=== PATIENT | female | born 2005 | race Caucasian/White ===

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

== ENCOUNTER 2024-11-23 23:23 | Inpatient (IN) | payer OTHER, SELFPAY ==
--- NOTE | ~2024-11-23 | CT_ITS ---
CLINICAL HISTORY: appy? RLQ pain CT abdomen and pelvis with contrast Comparison: None provided Findings: No consolidation or effusion. There is urothelial enhancement of the right renal pelvis and right ureter with mild peripelvic/periureteral edema. The liver, gallbladder, pancreas, spleen, bilateral adrenal glands, and left kidney appear within normal limits. There is no evidence of bowel obstruction. The appendix appears normal. There is no pneumoperitoneum. Urinary bladder wall thickening is present, which is more than expected for degree of distention. There is no adenopathy. 1.1 cm focal sclerosis is seen at L5, likely representing a bone island. No acute osseous abnormality is identified. No aggressive lytic or blastic lesion is seen. IMPRESSION: 1. Urothelial enhancement of the right renal pelvis and right ureter with mild right peripelvic/periureteral edema consistent with pyelitis/ureteritis. Recommend correlation with urinalysis. 2. Urinary bladder wall thickening suggestive of cystitis. This document has been electronically signed by: Duncan Nunez on 11/24/2024 05:06:15
--- NOTE | ~2024-11-23 | US_ITS ---
EXAMINATION: US RETROPERITONEAL LIMITED, RIGHT (RENAL ONLY) CLINICAL INFORMATION: Right ureteral hypervascularity. COMPARISON: CT performed same day at 3:49 am TECHNIQUE: Grayscale and color Doppler imaging was performed through the right kidney FINDINGS: RIGHT KIDNEY: 12.7 x 4.8 x 4.5 cm (SAG x AP x TRV). The kidney is normal in size, contour, and echogenicity. Renal cortical thickness is normal. No calculi or focal parenchymal lesions. No hydronephrosis. US/US renal RT IMPRESSION: Unremarkable right renal ultrasound. Electronically signed by: Inocente Farrell MD 11/24/2024 05:19 PM EDT
[2024-11-23 23:53] VITALS: BP 119/67; PULSE 88; RESP 18; TEMP 36.9; O2SAT 96; BMI 26.1
[2024-11-24] VITALS (9 sets, daily range): BP systolic 106–127; BP diastolic 54–77; PULSE 86–110; RESP 16–18; TEMP 36.7–38; O2SAT 96–100; BMI 26.3
[2024-11-24 00:10] LABS: Hematocrit 37.3 % (37.0-47.0); Hemoglobin 12.9 g/dl (12.0-16.0); Imm Gran Abs Auto 0.13 X10*3/uL (0.00-0.03); Imm Gran Pct Auto 0.6 % (0.0-0.4); Lymphocytes Absolute Auto 0.9 X10*3/uL (1.2-4.9); Mean Corpuscular HGB Conc 34.6 g/dl (31.0-35.0); Mean Corpuscular Hemoglobin 30.4 pg (27.0-33.0); Mean Corpuscular Volume 87.8 fL (80.0-98.0); NRBC Abs Auto 0.000 X10*3/uL (0.0-0.012); NRBC Pct Auto 0.0 /100WBC (0.0-0.2); Platelet Count 254 X10*3/uL (160-400); Red Blood Count 4.25 X10*6/uL (4.20-5.50); SCAN SMEAR FLAG 1; White Blood Count 22.9 X10*3/uL (4.8-10.8)
[2024-11-24 00:11] LABS: MANUAL DIFF FLAG SCAN
[2024-11-24 00:12] LABS: Appearance Urine Turbid; Glucose Urine UA Negative (Negative); PH 8.5 (5.0-9.0); Specific Gravity - Urine 1.015 (1.005-1.025); UMIC TRIGGER UACC YES
[2024-11-24 00:13] LABS: UPreg QC Valid YES
[2024-11-24 00:21] LABS: UACC Culture Trigger YES
[2024-11-24 00:25] LABS: Alanine Aminotransferase 13 U/L (0-31); Albumin Level 4.7 g/dL (3.5-5.0); Alkaline Phosphatase 59 U/L (39-117); Anion Gap 14 (12-20); Aspartate Amino Transferase 16 U/L (5-31); Blood Urea Nitrogen 9 mg/dL (9-16); Calcium 9.6 mg/dL (8.4-10.2); Carbon Dioxide 26 mmol/L (22-29); Chloride 105 mmol/L (96-108); Creatinine Clr Calc Pharmacy 126.1; Estimated Glomerular Filt Rate > 60; Lipase 27 U/L (8-78); Magnesium 1.8 mg/dL (1.6-2.6); Potassium 3.8 mmol/L (3.3-5.1); Sodium 141 mmol/L (135-145); Total Protein 7.7 g/dL (6.5-8.0)
--- OUTSIDE RECORDS SUMMARY | 2024-11-24 00:37 | XMS_ITS ---
Author Name [facility] Organization Unknown Care Team Organization Name Specialty Phone Email Start Date End [facility] 01/13/20222023
[2024-11-24] MEDS: iohexoL 350 MG/ML 100 ML INFUS..BTL 85 ML IV (04:11)
--- NOTE | 2024-11-24 05:15 | ED.GENADULT ---
HPI - General Adult General Chief complaint: Abdominal Pain Stated complaint: abd pain Time Seen by Provider: 11/24/24 02:15 Source: patient Limitations: no limitations History of Present Illness ED Provider: Sushila Padilla PA-C HPI narrative: 19-year-old female who is otherwise healthy presents with right lower abdominal discomfort times a day and a half. Pain is nonradiating, unable to describe the nature of her discomfort, but states it is intermittent and ?comes in waves?. Pain worse with movement. Associated dysuria, low-grade temperature at home, with nausea vomiting. Denies back pain, flank pain, history of kidney stones. No history of ovarian cysts. Related Data Allergies Allergy/AdvReac Type Severity Reaction Status Date / Time No Known Allergies Allergy Unverified 11/23/24 23:57 Review of Systems Review of Systems: Yes all other systems are reviewed and are negative Constitutional: Constitutional: Denies fatigue and Reports fever(s) Cardiovascular: Cardiovascular: Denies chest pain and Denies dyspnea Respiratory: Respiratory: Denies dyspnea Gastrointestinal: Gastrointestinal: Reports abdominal pain, Denies constipation, Denies diarrhea, Reports nausea and Reports vomiting Genitourinary: Genitourinary: Reports dysuria, Denies pelvic pain, Denies flank pain and Denies vaginal discharge Musculoskeletal: Musculoskeletal: Denies back pain Endocrine: Endocrine: Denies fatigue PMFSH Past Medical History Attestation statement: The following information was validated with the patient. Surgical History H/O removal of cyst H/O wisdom tooth extraction Social History Social History (Updated 11/24/24 @ 06:05 by DEL Hernandez) Alcohol intake: never Patient Tobacco Use Status: Never used Tobacco Smoked in Last 30 Days: No Use of substances other than those prescribed or required for medical reasons: No Advance Directives: No Patient : No (HCG negative) Physical Exam ED Vital Signs: Vital Signs - 24 hr 11/23/24 23:53 11/24/24 00:38 11/24/24 02:56 Temperature 98.5 F 98.6 F 99.0 F Pulse Rate 88 86 94 Respiratory Rate 18 16 17 Blood Pressure 119/67 127/77 122/72 Pulse Oximetry 96 100 99 Oxygen Delivery Method Room Air Room Air Room Air 11/24/24 04:02 Temperature 98.1 F Pulse Rate 91 Respiratory Rate 17 Blood Pressure 106/54 L Pulse Oximetry 97 Oxygen Delivery Method Room Air BMI result Body Mass Index 26.1 Const Other: Alert well-appearing Orientation/consciousness: patient oriented x3 Resp Effort & Inspection: normal respiratory effort Cardio Other: Normal peripheral perfusion GI Other: Abdomen is soft, nondistended, mild tenderness mid to lower right abdomen without guarding General: Yes no CVA tenderness Back/Spine/Pelvis Back: no CVA tenderness Skin Other: Warm dry no rash Neuro General: patient oriented x3, gait normal, no focal motor deficits and CN's II-XI intact bilaterally Psych Other: Cooperative Medications Administered Generic Name Dose Route Start Last Admin Trade Name Freq PRN Reason Stop Dose Admin Sodium Chloride 1,000 mls @ 100 mls/hr 11/24/24 05:45 11/24/24 06:34 Ns IVCONT 100 mls/hr .Q10H RAQUEL Administration Sodium Chloride 3 ml 11/24/24 08:00 11/24/24 07:29 0.9 % Sodium Chloride Flush 3 Ml Syringe IVFLUSH Not Given QSHIFT RAQUEL Discontinued Medications Generic Name Dose Route Start Last Admin Trade Name Freq PRN Reason Stop Dose Admin Acetaminophen 975 mg 11/24/24 05:56 11/24/24 06:30 Acetaminophen 325 Mg Tablet PO 11/24/24 05:57 975 mg ONCE ONE Administration Ceftriaxone Sodium 2 gm 11/24/24 02:30 11/24/24 02:48 Ceftriaxone Sodium 2 Gm Vial IVPUSH 11/24/24 02:31 2 gm ONCE ONE Administration Sodium Chloride 1,000 mls @ 999 mls/hr 11/24/24 02:30 11/24/24 04:02 Ns IV 11/24/24 03:30 Infused .Q1H1M RAQUEL Infusion Sodium Chloride 500 mls @ 500 mls/hr 11/24/24 06:00 11/24/24 06:32 Ns IV 11/24/24 06:59 500 mls/hr .Q1H RAQUEL Administration Iohexol 85 ml 11/24/24 04:09 11/24/24 04:11 Iohexol 350 Mg/Ml 100 Ml Infus..Btl IV 11/24/24 04:10 85 ml ONCE ONE Administration Ketorolac Tromethamine 15 mg 11/24/24 02:30 11/24/24 02:48 Ketorolac Tromethamine 15 Mg/Ml Vial IVPUSH 11/24/24 02:31 15 mg ONCE ONE Administration Ondansetron HCl 4 mg 11/24/24 01:40 11/24/24 01:43 Ondansetron Odt 4 Mg Tab.Rapdis TRANSLINGU 11/24/24 01:41 4 mg ONCE ONE Administration Ondansetron HCl 4 mg 11/24/24 02:30 11/24/24 03:33 Ondansetron Hcl 4 Mg/2 Ml Vial IVPUSH 11/24/24 02:31 Not Given ONCE ONE Medical Decision Making Medical Decision Making MDM Narrative: 19-year-old female who is otherwise healthy presents with right lower abdominal discomfort times a day and a half. Pain is nonradiating, unable to describe the nature of her discomfort, but states it is intermittent and ?comes in waves?. Pain worse with movement. Associated dysuria, low-grade temperature at home, with nausea vomiting. Denies back pain, flank pain, history of kidney stones. No history of ovarian cysts. No chronic issues History: Per patient I have considered the following differential diagnoses: Pyelonephritis, UTI, renal colic, appendicitis, torsion, biliary colic, cholecystitis Plan: Screening labs including urinalysis were completed from triage, the patient has significant leukocytosis and a urinary tract infection, given associated pain, we will be scanning to rule out pyelo versus obstructing infected stone. Adding on blood cultures, lactic, starting ceftriaxone, giving Toradol Zofran and IV fluid. Given right-sided symptoms, I did consider underlying biliary pathology, however there was no focal right upper quadrant pain, she is not having postprandial symptoms, LFTs are normal. Likewise, thought about appendicitis, this still could be appendicitis, CT pending. I do not believe this is torsion, the patient is well-appearing, appears comfortable, she does not have a known history of cysts. I have independently reviewed the following tests: Labs: Significant leukocytosis of 22.9 with left shift, not anemic, no electrolyte abnormality, not , urine infected CT abdomen and pelvis:IMPRESSION: 1. Urothelial enhancement of the right renal pelvis and right ureter with mild right peripelvic/periureteral edema consistent with pyelitis/ureteritis. Recommend correlation with urinalysis. 2. Urinary bladder wall thickening suggestive of cystitis. Differential Diagnosis Differential Diagnoses: The differential diagnosis associated with the presentation includes See medical decision-making Admission/Observation Consideration of admission/observation: Escalation of care including admission/observation considered We will require admission and likely urology consult Consult Healthcare Provider Management of the patient was discussed with: Hospitalist and Assembler Insulator Lab Data MDM Lab Attestation statement: I reviewed the patient's lab results. 11/24/24 00:04 11/24/24 00:04 Labs: Lab Results 11/24/24 11/24/24 Range/Units 00:04 02:41 WBC 22.9 H (4.8-10.8) X10*3/uL RBC 4.25 (4.20-5.50) X10*6/uL Hgb 12.9 (12.0-16.0) g/dl Hct 37.3 (37.0-47.0) % MCV 87.8 (80.0-98.0) fL MCH 30.4 (27.0-33.0) pg MCHC 34.6 (31.0-35.0) g/dl RDW 12.9 (11.0-16.0) % Plt Count 254 (160-400) X10*3/uL MPV 11.4 (9.4-12.3) fL Immature Gran % (Auto) 0.6 H (0.0-0.4) % Neut % (Auto) 89.8 H (45-73) % Lymph % (Auto) 3.7 L (20-40) % [place] % (Auto) 5.7 (2-11) % Eos % (Auto) 0.0 (0-4) % Baso % (Auto) 0.2 (0-2) % Lymph # (Auto) 0.9 L (1.2-4.9) X10*3/uL [place] # (Auto) 1.3 H (0.1-1.2) X10*3/uL Eos # (Auto) 0.0 (0.0-0.4) X10*3/uL Baso # (Auto) 0.0 (0.0-0.2) X10*3/uL Abs Immat Gran (auto) 0.13 H (0.00-0.03) X10*3/uL Absolute Neuts (auto) 20.5 H (2.0-8.3) x10*3/uL Absolute Nucleated RBC 0.000 (0.0-0.012) X10*3/uL Nucleated RBC % (auto) 0.0 (0.0-0.2) /100WBC Smear Tech's Comments VERIFIED Sodium 141 (135-145) mmol/L Potassium 3.8 (3.3-5.1) mmol/L Chloride 105 (96-108) mmol/L Carbon Dioxide 26 (22-29) mmol/L Anion Gap 14 (12-20) BUN 9 (9-16) mg/dL Creatinine 0.78 (0.5-1.4) mg/dL Estim Creat Clear Calc 126.1 Estimated GFR > 60 Random Glucose 129 H (60-115) mg/dL Lactic Acid 1.0 (0.5-2.0) mmol/L Calcium 9.6 (8.4-10.2) mg/dL Magnesium 1.8 (1.6-2.6) mg/dL Total Bilirubin 0.6 (0.0-1.0) mg/dL Direct Bilirubin 0.2 (0.0-0.5) mg/dL AST 16 (5-31) U/L ALT 13 (0-31) U/L Alkaline Phosphatase 59 (39-117) U/L Total Protein 7.7 (6.5-8.0) g/dL Albumin 4.7 (3.5-5.0) g/dL Lipase 27 (8-78) U/L Urine Color Yellow Urine Appearance Turbid Urine pH 8.5 (5.0-9.0) Ur Specific [place] 1.015 (1.005-1.025) Urine Protein 300 (3+) H (Neg-Trace) mg/dL Urine Glucose (UA) Negative (Negative) mg/dL Urine Ketones Trace (Negative) mg/dL Urine Blood Large (3+) H (Negative) Urine Nitrite Positive H (Negative) Ur Leukocyte Esterase Large (3+) H (Negative) Urine RBC >20 H (0-2) /HPF Urine WBC >50 H (0-5) /HPF Ur Squamous Epith Cells 0-2 (0-2) /HPF Urine Bacteria 4+ (None Seen) Hyaline Casts 0-2 (0-2) /LPF Urine Test NEGATIVE (NEGATIVE) Radiology Impression Discussion of test interpretation with radiology: I have reviewed the radiologist's reading. Critical Care Time Critical Care Time Critical Care Time: Yes Total Critical Care Time: 35 Attestation: I Sushila Padilla PA-C have personally performed 35 minutes of critical care time not including lines and procedures; need for IV antibiotic and pain med, concerned for sepsis, need for inpatient admission, likely urology consult Discharge Plan Discharge Clinical Impression: Pyelonephritis of right kidney Patient Disposition: Admitted As Inpatient Interventions: Admission Worksheet (ED) Last Done: 11/24/24 06:19
--- NOTE | 2024-11-24 05:31 | P.HPHOSP_ITS ---
History of Present Illness Date of Service: 11/24/24 Attending physician on admission: Izabel Edward Chief Complaint: abdominal pain Pt is a 19 yo female with PMH wisdom teeth extraction and cyst removal from under the chin presents to the emergency department for evaluation for sudden onset nausea with profound vomiting that started at 15:00 on 11/23/2024. Patient had actually called her mother to see if she was having any symptoms as she thought she had food poisoning. Mother denied having any symptoms. Patient did note that her temperature at home highest was 99.9. Patient denied any chills. Patient also stated that there were no issues with her urine including foul odor or cloudy urine. Patient denies being currently sexually active, hCG negative, and has a normal usual menstrual cycle. Patient denies any history of UTI, kidney stones or difficulty urinating. Patient currently denies any burning or pain with urination or flank pain. . Workup in the ED noted CT scan of the abdomen and pelvis which identified urothelial enhancement of the right renal pelvis and right ureter with mild right peripelvic/Periuretera edema consistent with pyelitis/ureteritis. No evidence of obstruction on CT scan. UA positive for +3 proteinuria, heme, nitrites, leukocyte esterase +3, WBCs greater than 50 and 4+ bacteria. Patient's nausea and vomiting have completely resolved. Patient did receive 1 L of fluids in the ED. hemodynamics stable. Lactic acid normal. Patient does have a leukocytosis with left shift. Renal function stable. Highest temp in the ED is 99.1. Patient does not meet the criteria for sepsis at this time. Patient's mother present and has history of kidney stones. Review of Systems 2 Review of Systems: Patient denies any chest pain, shortness of breath at rest, current nausea or vomiting. Patient is not having any abdominal pain or flank pain. Patient denies any burning or pain with urination. Yes all other systems are reviewed and are negative PMFSH Cognitive capacity: Alert and orientated x3 Functional capacity: independent ambulation Patient : No (HCG negative) Pertinent family history: Mother has a history of kidney stones Surgical History H/O removal of cyst H/O wisdom tooth extraction Social History (Updated 11/24/24 @ 06:05 by DEL Hernandez) Alcohol intake: never Patient Tobacco Use Status: Never used Tobacco Smoked in Last 30 Days: No Use of substances other than those prescribed or required for medical reasons: No Advance Directives: No Patient : No (HCG negative) Ebola Risk: Travel/Contact With Anyone From Affected Area/s: No Has Patient Experienced Ebola Symptoms: No Meds Allergies Allergy/AdvReac Type Severity Reaction Status Date / Time No Known Allergies Allergy Unverified 11/23/24 23:57 Active Medications: No home prescription med Physical Exam 2 Vital Signs and Narrative: Vital Signs: Last Vital Signs Temp 98.1 F 11/24/24 04:02 Pulse 91 11/24/24 04:02 Resp 17 11/24/24 04:02 BP 106/54 L 11/24/24 04:02 Pulse Ox 97 11/24/24 04:02 O2 Del Method Room Air 11/24/24 04:02 BMI result Body Mass Index 26.1 Alert and orientated X3, able to give good history. Neuro: CN II-X11 intact, no deficits, visual acuity intact EYES: PERRLA, EOM intact, sclerae nonicteric, conjunctiva pink ENT: hearing intact, no issues with swallowing, uvula midline, lips moist, nares patent no epistaxis Cardiac: S1 S2 RRR, no murmur, no JVD, no edema in Lower ext Pulmonary: lungs clear to auscultation B Abdominal: BS active in all 4 quadrants, no guarding, tenderness, rebounding MSK: strength 5/5 upper and lower extremities : no CVA tenderness no bladder distension Extremities: no edema in lower extremities, PT and DP pulses palpable +2 Psych: mood stable, judgement and insight good Skin: No new rashes or lesions Results Labs 11/24/24 00:04 11/24/24 00:04 Labs: Laboratory Results - last 24 hr 11/24/24 11/24/24 00:04 02:41 MCV 87.8 MCH 30.4 MCHC 34.6 RDW 12.9 Plt Count 254 MPV 11.4 Immature Gran % (Auto) 0.6 H Neut % (Auto) 89.8 H Lymph % (Auto) 3.7 L [place] % (Auto) 5.7 Eos % (Auto) 0.0 Baso % (Auto) 0.2 Lymph # (Auto) 0.9 L [place] # (Auto) 1.3 H Eos # (Auto) 0.0 Baso # (Auto) 0.0 Abs Immat Gran (auto) 0.13 H Absolute Neuts (auto) 20.5 H Absolute Nucleated RBC 0.000 Nucleated RBC % (auto) 0.0 Smear Tech's Comments VERIFIED Anion Gap 14 Estim Creat Clear Calc 126.1 Estimated GFR > 60 Random Glucose 129 H Lactic Acid 1.0 Calcium 9.6 Magnesium 1.8 Total Bilirubin 0.6 Direct Bilirubin 0.2 AST 16 ALT 13 Alkaline Phosphatase 59 Total Protein 7.7 Albumin 4.7 Lipase 27 Urine Color Yellow Urine Appearance Turbid Urine pH 8.5 Ur Specific [place] 1.015 Urine Protein 300 (3+) H Urine Glucose (UA) Negative Urine Ketones Trace Urine Blood Large (3+) H Urine Nitrite Positive H Ur Leukocyte Esterase Large (3+) H Urine RBC >20 H Urine WBC >50 H Ur Squamous Epith Cells 0-2 Urine Bacteria 4+ Hyaline Casts 0-2 Urine Test NEGATIVE Imaging Radiologist's Impressions: CT ABD IMPRESSION: 1. Urothelial enhancement of the right renal pelvis and right ureter with mild right peripelvic/periureteral edema consistent with pyelitis/ureteritis. Recommend correlation with urinalysis. 2. Urinary bladder wall thickening suggestive of cystitis. Assessment and Plan (1) Pyelonephritis of right kidney: Status: Acute Plan Pt is a 19 yo female with PMH wisdom teeth extraction and cyst removal from under the chin presents to the emergency department for evaluation for sudden onset nausea with profound vomiting that started at 15:00 on 11/23/2024. Patient had actually called her mother to see if she was having any symptoms as she thought she had food poisoning.Patient denies any history of UTI, kidney stones or difficulty urinating. Patient diagnosed with nonobstructing pyelonephritis via CT. Urinalysis +3 proteinuria, positive for heme, nitrites, leukocyte esterase +3, WBCs greater than 50 and 4+ bacteria. Pyelonephritis R Kidney No evidence of obstruction on CT scan, no current indication for Urology consult at this time Renal US of R kidney ordered Renal functions within normal limits Monitor BMP Patient is started on ceftriaxone IV fluids continue Tylenol for fever No issues with flank pain, N/V have resolved Urine culture pending Blood cultures pending No evidence of sepsis on arrival, lactic acid normal but patient does have a leukocytosis with left shift Monitor CBC DVT prophylaxis: Not indicated due to low risk Patient does not take any home prescription medications. Full code status Quality Stroke Does the patient have a stroke diagnosis?: No Reason for No Anti-thrombotic by Day Two: Drug treatment not indicated VTE Prior VTE?: No VTE Risk Level:: Medical - low VTE Device Contraindication: Treatment Not Indicated VTE Drug Contraindication: Treatment Not Indicated
--- NOTE | 2024-11-24 06:01 | HO.NURTONUR ---
Pt from home with complaint of intermittent abdominal pain and discomfort since yesterday afternoon with nausea/vomiting and low grade fever. Pt is otherwise healthy. During assessment lower right abdomen was tender to touch, with 8/10 pain. While in the ED workup showed: LABS- WBC- 22.9 Urine- protein- 300+ blood- large nitrite- positive leukocyte Esterase- large RBC- >20 WBC- >50 Ct Abdomen/ Pelvis: IMPRESSION: 1. Urothelial enhancement of the right renal pelvis and right ureter with mild right peripelvic/periureteral edema consistent with pyelitis/ureteritis. Recommend correlation with urinalysis. 2. Urinary bladder wall thickening suggestive of cystitis. Pt is a&ox4, able to make her needs known, and able to ambulate with steady gait. Pt has 20G IV in RAC and has been medicated per mar. Pt being admitted for acute pyelonephritis, IV abx, and possible urology consult.
[2024-11-24 08:38] LABS: Hematocrit 33.3 % (37.0-47.0); Hemoglobin 11.2 g/dl (12.0-16.0); Mean Corpuscular HGB Conc 33.6 g/dl (31.0-35.0); Mean Corpuscular Hemoglobin 29.9 pg (27.0-33.0); Mean Corpuscular Volume 89.0 fL (80.0-98.0); NRBC Abs Auto 0.000 X10*3/uL (0.0-0.012); NRBC Pct Auto 0.0 /100WBC (0.0-0.2); Platelet Count 178 X10*3/uL (160-400); Red Blood Count 3.74 X10*6/uL (4.20-5.50); White Blood Count 14.8 X10*3/uL (4.8-10.8)
--- NOTE | 2024-11-24 08:51 | PHA.MEDREC ---
Pharmacy Consult ? Medication Reconciliation Pharmacy has completed the medication reconciliation. Pt states not on any home medications.
--- NOTE | 2024-11-24 13:18 | MHC.CM.PN ---
pt lives with parents is indpedent and working has a ride home dc plan home n/s
--- NOTE | 2024-11-24 14:41 | W.PM.IDCN ---
History of Present Illness Data of Consult Service Date: 11/24/24 Requesting physician: Dominga Carter Primary Care Provider: Sona Roblero MD HPI Reason for consult: sepsis,leukocytosis and tachycardia She presents with one day worsening right flank pain. She has had worsening discomfort. CT shows pyelitis and bladder inflammation. She is on Ceftriaxone. Review of Systems Review of Systems: Yes all other systems are reviewed and are negative PMFSH Family History Family history: reviewed and not pertinent Surgical History Surgical History H/O removal of cyst H/O wisdom tooth extraction Social History Social History Household Members: Family Housing: House Do you presently have visiting nurse or other home services: No Alcohol intake: never Patient Tobacco Use Status: Never used Tobacco Smoked in Last 30 Days: No Use of substances other than those prescribed or required for medical reasons: No Have you been hit, kicked, punched, or otherwise hurt by someone within the past year? If so, by whom?: No Do you feel safe in your current relationship?: Yes Is there a partner from a previous relationship who is making you feel unsafe now?: No Are you made to feel afraid or neglected: No Advance Directives: No Do you have a plan to hurt others: No Plan Recently lost weight without trying: No How much weight loss: Not applicable Eating poorly because of decreased appetite: No Nutrition screen score: 0 Nutrition Risks: No Nutritional Risk Patient : No : No Poor oral hygiene: No service: No Travel History Ebola Risk: Travel/Contact With Anyone From Affected Area/s: No Has Patient Experienced Ebola Symptoms: No Meds Allergies Allergy/AdvReac Type Severity Reaction Status Date / Time No Known Allergies Allergy Unverified 11/23/24 23:57 Active Medications: Current Medications Acetaminophen (Acetaminophen 325 Mg Tablet) 650 mg PO Q6H PRN PRN Reason: Pain, Mild 1-3,fever,headache Albuterol/Ipratropium (Albuterol/Iprat 2.5/0.5mg 3 Ml Ampul.Neb) 3 ml INHALE Q4H PRN PRN Reason: Shortness of Breath/Wheezing Calcium Carbonate (Calcium Carbonate 750 Mg Tab.Chew) 750 mg PO Q4H PRN PRN Reason: Heartburn Ceftriaxone Sodium (Ceftriaxone Sodium 1 Gm Vial) 1 gm IVPUSH Q24H [facility] Sodium Chloride (Ns) 1,000 mls @ 100 mls/hr IVCONT .Q10H [facility] Last Admin: 11/24/24 06:34 Dose: 100 mls/hr Magnesium Hydroxide (Milk Of Magnesia 30 Ml Oral.Susp) 30 ml PO DAILY PRN PRN Reason: Constipation Melatonin (Melatonin 3 Mg Tablet) 6 mg PO BEDTIME PRN PRN Reason: Insomnia Ondansetron HCl (Ondansetron Hcl 4 Mg/2 Ml Vial) 4 mg IVPUSH Q8H PRN PRN Reason: Nausea and Vomiting Sodium Chloride (0.9 % Sodium Chloride Flush 3 Ml Syringe) 3 ml IVFLUSH QSHIFT [facility] Last Admin: 11/24/24 14:25 Dose: Not Given Home Medications ?Medication ?Instructions ?Recorded ?Confirmed ?Last Taken ?Type No Known Home Meds 11/24/24 11/24/24 Unknown History Physical Exam Vital Signs: Vital Signs: Last Vital Signs Temp 98.5 F 11/24/24 10:58 Pulse 90 11/24/24 10:58 Resp 18 11/24/24 10:58 BP 110/61 11/24/24 10:58 Pulse Ox 98 11/24/24 10:58 O2 Del Method Room Air 11/24/24 10:58 BMI result Body Mass Index 26.3 Const: General: cooperative HEENT: Head: Yes normal to inspection Face and sinus: Yes normal facial exam Mouth: Normal oral and palatal mucosa present Teeth and gingiva: dentition normal Eyes: General: appearance normal, both eyes and all related structures Pupils: Equal, round and reactive pupils present Resp: Effort & Inspection: normal respiratory effort Cardio: Rate: regular rate Rhythm: regular rhythm GI: Palpation (GI): Soft to palpation and nontender : Other: right flank pain General: Yes no CVA tenderness Back/Spine/Pelvis: Back: no CVA tenderness Skin: General skin exam: no rashes or lesions noted Neuro: General: moves all extremities Cranial nerves: Yes Equal, round and reactive pupils present Extrem: General: Yes normal to inspection Psych: Appearance: grossly normal Results Labs 11/24/24 08:26 11/24/24 00:04 Labs: Short CBC 11/24/24 11/24/24 Range/Units 00:04 08:26 WBC 22.9 H 14.8 H (4.8-10.8) X10*3/uL Hgb 12.9 11.2 L (12.0-16.0) g/dl Hct 37.3 33.3 L (37.0-47.0) % Plt Count 254 178 D (160-400) X10*3/uL BMP 11/24/24 00:04 Sodium 141 Potassium 3.8 Chloride 105 Carbon Dioxide 26 BUN 9 Creatinine 0.78 Calcium 9.6 Liver Function 11/24/24 Range/Units 00:04 Total Bilirubin 0.6 (0.0-1.0) mg/dL Direct Bilirubin 0.2 (0.0-0.5) mg/dL AST 16 (5-31) U/L ALT 13 (0-31) U/L Alkaline Phosphatase 59 (39-117) U/L Albumin 4.7 (3.5-5.0) g/dL Urine 11/24/24 Range/Units 00:04 Urine Color Yellow Urine Appearance Turbid Urine pH 8.5 (5.0-9.0) Ur Specific [place] 1.015 (1.005-1.025) Urine Protein 300 (3+) H (Neg-Trace) mg/dL Urine Glucose (UA) Negative (Negative) mg/dL Assessment and Plan (1) Pyelonephritis of right kidney: Status: Acute Plan She has pending cultures,likely gram negative rods. She is feeling better Would continue Ceftriaxone and then switch to po cephalosporin total 10 days
--- NOTE | 2024-11-24 15:22 | PM.EVENT ---
Event Note Date of Service: 11/24/24 Event Note: This patient is seen and examined . has similar urinary c/o Physical exam and assessment and plan coordinated in h&P note, Agree with the plan in addition: continue iv antibiotics ,cultures pending Time Spent With Patient Time: Total time managing care of this patient today ____ minutes.
[2024-11-25 02:57] VITALS: BP 114/60; PULSE 98; RESP 18; TEMP 38.3; O2SAT 96
[2024-11-25 06:15] LABS: MANUAL DIFF FLAG NO
[2024-11-25 06:27] LABS: Hematocrit 33.6 % (37.0-47.0); Hemoglobin 11.2 g/dl (12.0-16.0); Imm Gran Abs Auto 0.11 X10*3/uL (0.00-0.03); Imm Gran Pct Auto 1.4 % (0.0-0.4); Lymphocytes Absolute Auto 0.6 X10*3/uL (1.2-4.9); Mean Corpuscular HGB Conc 33.3 g/dl (31.0-35.0); Mean Corpuscular Hemoglobin 29.7 pg (27.0-33.0); Mean Corpuscular Volume 89.1 fL (80.0-98.0); NRBC Abs Auto 0.000 X10*3/uL (0.0-0.012); NRBC Pct Auto 0.0 /100WBC (0.0-0.2); Platelet Count 148 X10*3/uL (160-400); Red Blood Count 3.77 X10*6/uL (4.20-5.50); White Blood Count 7.8 X10*3/uL (4.8-10.8)
[2024-11-25 06:55] LABS: Anion Gap 11 (12-20); Blood Urea Nitrogen 5 mg/dL (9-16); Carbon Dioxide 21 mmol/L (22-29); Chloride 107 mmol/L (96-108); Creatinine Clr Calc Pharmacy 145.3; Estimated Glomerular Filt Rate > 60; Potassium 3.4 mmol/L (3.3-5.1); Sodium 136 mmol/L (135-145)
[2024-11-25 07:18] LABS: Calcium 8.5 mg/dL (8.4-10.2)
--- NOTE | 2024-11-25 07:44 | P.PNIM_ITS ---
Subjective Subjective Date of Service: 11/25/24 Interval History: bacteremia Review of Systems No fevers, urinary symptoms improving Review of Systems: Yes all other systems are reviewed and are negative Physical Exam 2 Exam: Exam: Appearance: Alert.? Oriented X3.? cvs: rrr, [id number] . res: clear to auscultation ,no rhonchii or wheezing abd: no rebound or guarding ,nt, bs present. ext pulses present , no cyanosis. neuro: axo3 , nonfocal. Vital Signs: Vital Signs: Last Vital Signs Temp 100.9 F H 11/25/24 02:57 Pulse 98 11/25/24 02:57 Resp 18 11/25/24 02:57 BP 114/60 11/25/24 02:57 Pulse Ox 96 11/25/24 02:57 O2 Del Method Room Air 11/25/24 02:57 BMI result Body Mass Index 26.3 Objective Data Active Medications Acetaminophen (Acetaminophen 325 Mg Tablet) 650 mg PO Q6H PRN PRN Reason: Pain, Mild 1-3,fever,headache Last Admin: 11/24/24 20:16 Dose: 650 mg Documented By: VADIM Albuterol/Ipratropium (Albuterol/Iprat 2.5/0.5mg 3 Ml Ampul.Neb) 3 ml INHALE Q4H PRN PRN Reason: Shortness of Breath/Wheezing Calcium Carbonate (Calcium Carbonate 750 Mg Tab.Chew) 750 mg PO Q4H PRN PRN Reason: Heartburn Ceftriaxone Sodium (Ceftriaxone Sodium 2 Gm Vial) 2 gm IVPUSH Q24H [facility] Last Admin: 11/25/24 03:17 Dose: 2 gm Documented By: VADIM Sodium Chloride (Ns) 1,000 mls @ 100 mls/hr IVCONT .Q10H [facility] Last Admin: 11/25/24 02:11 Dose: 100 mls/hr Documented By: VADIM Magnesium Hydroxide (Milk Of Magnesia 30 Ml Oral.Susp) 30 ml PO DAILY PRN PRN Reason: Constipation Melatonin (Melatonin 3 Mg Tablet) 6 mg PO BEDTIME PRN PRN Reason: Insomnia Ondansetron HCl (Ondansetron Hcl 4 Mg/2 Ml Vial) 4 mg IVPUSH Q8H PRN PRN Reason: Nausea and Vomiting Last Admin: 09/19/25 15:20 Dose: 4 mg Documented By: MARIO Sodium Chloride (0.9 % Sodium Chloride Flush 3 Ml Syringe) 3 ml IVFLUSH QSHIFT [facility] Last Admin: 11/24/24 23:25 Dose: Not Given Documented By: VADIM Non-Admin Reason: IV Running Labs 11/25/24 05:51 11/25/24 05:51 Labs: Laboratory Results - last 24 hr 11/24/24 11/25/24 08:26 05:51 MCV 89.0 89.1 MCH 29.9 29.7 MCHC 33.6 33.3 RDW 12.9 12.7 Plt Count 178 D 148 L MPV 11.7 11.6 Immature Gran % (Auto) 1.4 H Neut % (Auto) 83.3 H Lymph % (Auto) 7.4 L [place] % (Auto) 7.5 Eos % (Auto) 0.0 Baso % (Auto) 0.4 Lymph # (Auto) 0.6 L [place] # (Auto) 0.6 Eos # (Auto) 0.0 Baso # (Auto) 0.0 Abs Immat Gran (auto) 0.11 H Absolute Neuts (auto) 6.5 Absolute Nucleated RBC 0.000 0.000 Nucleated RBC % (auto) 0.0 0.0 Anion Gap 11 L Estim Creat Clear Calc 145.3 Estimated GFR > 60 Random Glucose 117 H Calcium 8.5 D Microbiology Microbiology Results: Microbiology 11/24/24 02:41 Blood Culture - Preliminary Blood - Venous Prelim: GNR Gram Stain only 11/24/24 02:41 Blood Culture - Preliminary Blood - Venous Prelim: GNR Gram Stain only Assessment and Plan (1) Pyelonephritis of right kidney: Status: Acute Plan 19 yo female with PMH wisdom teeth extraction and cyst removal from under the chin presents to the emergency department for evaluation for sudden onset nausea with profound vomiting that started at 15:00 on 11/23/2024. Patient had actually called her mother to see if she was having any symptoms as she thought she had food poisoning.Patient denies any history of UTI, kidney stones or difficulty urinating. Patient diagnosed with nonobstructing pyelonephritis via CT. Urinalysis +3 proteinuria, positive for heme, nitrites, leukocyte esterase +3, WBCs greater than 50 and 4+ bacteria. Pyelonephritis R Kidney No evidence of obstruction on CT scan, no current indication for Urology consult at this time Renal US of R kidney-Unremarkable right renal ultrasound. bactermia -blood culturesx2 -gram neg rods continue ceftriaxone,IV fluids continue,Tylenol for fever. id eval DVT prophylaxis: Not indicated due to low risk Quality Stroke Does the patient have a stroke diagnosis?: No Reason for No Anti-thrombotic by Day Two: Drug treatment not indicated VTE Prior VTE?: No VTE Risk Level:: Medical - low VTE Device Contraindication: Treatment Not Indicated VTE Drug Contraindication: Treatment Not Indicated
[2024-11-25 07:55] VITALS: BP 110/59; PULSE 105; RESP 16; TEMP 36.8; O2SAT 97
[2024-11-25 09:00] VITALS: PULSE 98
[2024-11-25 15:26] VITALS: BP 121/58; PULSE 101; RESP 18; TEMP 36.8; O2SAT 97
[2024-11-25 19:25] VITALS: BP 122/66; PULSE 96; RESP 18; TEMP 37.4; O2SAT 97
[2024-11-26 03:44] VITALS: BP 98/62; PULSE 79; RESP 18; TEMP 36; O2SAT 99
[2024-11-26 08:00] VITALS: BP 117/73; PULSE 76; RESP 16; TEMP 36.3; O2SAT 98
--- NOTE | 2024-11-26 11:18 | P.DS_ITS ---
DS: Providers Provider Date of Service: 11/26/24 Date of admission: 11/24/24 05:29 Date of discharge: 11/26/24 Primary care physician: Sona Roblero MD Consults: 11/24/24 09:48 Consult to Infectious Diseases Routine Consulting Provider: [facility] [place] [facility] Reason for consultation: UTI / urethritis / pyelo Has provider been notified: No DS: Diagnosis Discharge Diagnosis (1) Pyelonephritis of right kidney: Status: Acute DS: Summary Hospital Course Hospital Course: HPI:19 yo female with PMH wisdom teeth extraction and cyst removal from under the chin presents to the emergency department for evaluation for sudden onset nausea with profound vomiting that started at 15:00 on 11/23/2024. Patient had actually called her mother to see if she was having any symptoms as she thought she had food poisoning. Mother denied having any symptoms. Patient did note that her temperature at home highest was 99.9. Patient denied any chills. Patient also stated that there were no issues with her urine including foul odor or cloudy urine. Patient denies being currently sexually active, hCG negative, and has a normal usual menstrual cycle. Patient denies any history of UTI, kidney stones or difficulty urinating. Patient currently denies any burning or pain with urination or flank pain. . Workup in the ED noted CT scan of the abdomen and pelvis which identified urothelial enhancement of the right renal pelvis and right ureter with mild right peripelvic/Periuretera edema consistent with pyelitis/ureteritis. No evidence of obstruction on CT scan. UA positive for +3 proteinuria, heme, nitrites, leukocyte esterase +3, WBCs greater than 50 and 4+ bacteria. Patient's nausea and vomiting have completely resolved. Patient did receive 1 L of fluids in the ED. hemodynamics stable. Lactic acid normal. Patient does have a leukocytosis with left shift. Renal function stable. Highest temp in the ED is 99.1. Patient does not meet the criteria for sepsis at this time. Patient's mother present and has history of kidney stones. Hospital course:patient admitted for Pyelonephritis R Kidney No evidence of obstruction on CT scan, no current indication for Urology consult at this time Renal US of R kidney-Unremarkable right renal ultrasound. bactermia -started on ceftriaxone,IV fluids continue,Tylenol for fever,afterwards blood culturesx2 -Proteus mirabilis sensitive to ceftriaxone. Patient was switched to p.o. Ceftin for 13 more days. She is asymptomatic. plan: Complete Ceftin p.o. b.i.d. as prescribed. Follow-up with PCP outpatient. Above management discussed with the patient in detail length she understand in agreement with the above plan, time spent 45 minute. All question answered. Time Attestation Total time managing care of this patient today: 45 mintues. Discharge Coordination Time (in mins): 45min Quality: Safe Use of Opioids Does Pt have an Active Cancer Diagnosis on the Problem List?: No Quality: Stroke Does the patient have a stroke diagnosis?: No Physical Exam Exam: Exam: Appearance: Alert.? Oriented X3.? cvs: rrr, [id number]. res: clear to auscultation ,no rhonchii or wheezing abd: no rebound or guarding ,nt, bs present. ext pulses present , no cyanosis. neuro: axo3 , nonfocal. Vital Signs: Vital Signs: Last Vital Signs Temp 97.3 F 11/26/24 08:00 Pulse 76 11/26/24 08:00 Resp 16 11/26/24 08:00 BP 117/73 11/26/24 08:00 Pulse Ox 98 11/26/24 08:00 O2 Del Method Room Air 11/26/24 08:00 BMI result Body Mass Index 26.3 DS: Data Imaging Chest x-ray: Radiologist's impression: ITS Impressions Renal Ultrasound 11/24/24 16:31 IMPRESSION: Unremarkable right renal ultrasound. Discharge Plan Discharge Anticipated Discharge Date/Time: 11/26/24 11:10 Patient Disposition: Home, Self-Care Discharge Diagnosis: Pyelonephritis, bacteremia Referrals: Sona Roblero MD [Primary Care Provider, Internal Medicine] - 1 Week Discharge Medications: New cefuroxime axetil 500 mg Tablet 500 mg PO Q12H Qty: 26 0RF Discharge Orders: Discharge Order (Routine); Ordered 11/26/24 Ordered By: Dominga Carter Diet: Advance to usual diet Activity on Discharge: As tolerated Stand Alone Forms: Patient Portal Discharge page, Work/School Release Print Language: Luxembourgish Care Plan Goals: Complete Ceftin p.o. b.i.d. as prescribed. Follow-up with PCP outpatient Health Concerns: as above. Plan of Treatment: As above. Assessment: As above. Discharge Date/Time: 11/26/24 11:58
--- NOTE | 2024-11-26 11:32 | MHC.CM.PN ---
PT TO DC HOME TODAY NO SERVICES INDICATED FAMILY TO TRANSPORT
== END 2024-11-26 11:58 | disposition home or self-care (01) | DRG 690 ==
LOC: HO.ED 11-24 05:27 → HO.EDOVER 11-24 05:33 → HO.S3 11-24 05:35
PROVIDERS: Physician Assistant Medical; Admitting Provider Nurse Practitioner Family; Emergency Provider Student in an Organized Health Care Education/Training Program; PCP Internal Medicine; Visit Provider Internal Medicine
DX: N12 Tubulo-interstitial nephritis, not specified as acute or chronic (principal); R78.81 Bacteremia; B96.4 Proteus (mirabilis) (morganii) as the cause of diseases classified elsewhere; Z79.899 Other long term (current) drug therapy
CPT/HCPCS: 36415; 74177; 76775; 80048; 80053; 81001; 81025; 82248; 83605; 83690; 83735; 85025; 85027; 87040; 87077; 87086; 87186; 87205; 99221; 99285; J0696; J1885; J2405; Q9967

== ENCOUNTER → 2024-11-24 02:30 | Outpatient (BNV) | payer OTHER, SELFPAY | PROVIDERS: Admitting Provider Nurse Practitioner Family; Emergency Provider Student in an Organized Health Care Education/Training Program; PCP Internal Medicine; Visit Provider Radiology Vascular & Interventional Radiology | DX: N32.89 Other specified disorders of bladder (principal) | CPT/HCPCS: 74177; 76775 ==

== ENCOUNTER → 2024-11-24 05:29 | Outpatient (BNV) | payer OTHER, SELFPAY | PROVIDERS: Admitting Provider Nurse Practitioner Family; Emergency Provider Student in an Organized Health Care Education/Training Program; PCP Internal Medicine; Visit Provider Internal Medicine | DX: N12 Tubulo-interstitial nephritis, not specified as acute or chronic (principal) | CPT/HCPCS: 99222 ==

== ENCOUNTER → 2024-11-24 05:29 | Outpatient (BNV) | payer OTHER, SELFPAY | PROVIDERS: Admitting Provider Nurse Practitioner Family; Emergency Provider Student in an Organized Health Care Education/Training Program; PCP Internal Medicine; Visit Provider Internal Medicine | DX: N12 Tubulo-interstitial nephritis, not specified as acute or chronic (principal) | CPT/HCPCS: 99222; 99232; 99239; 99499 ==